=== PATIENT | female | born 1990 | race African-American/Black ===

== ENCOUNTER 2017-12-03 11:29 | Inpatient (IN) | payer MEDICAID | END 2017-12-05 15:45 | disposition home or self-care (01) | DRG 766 | LOC: D.LD 11:29 | PROC: 10D00Z1 Extraction of Products of Conception, Low, Open Approach (ICD-10-PCS; principal; 2017-12-03) | DX: O76 Abnormality in fetal heart rate and rhythm complicating labor and delivery (principal); Z3A.40 40 weeks gestation of pregnancy; Z37.0 Single live birth; O34.211 Maternal care for low transverse scar from previous cesarean delivery; O48.0 Post-term pregnancy; O99.824 Streptococcus B carrier state complicating childbirth ==

== ENCOUNTER 2020-12-27 06:40 | Day surgery (SDC) | payer MEDICAID ==
[2020-12-24 15:51] LABS: BASOPHILS 0.5 % (0-2); EOSINOPHILS 0.9 % (0-7); HEMOGLOBIN 10.7 g/dL (12-16); IMMATURE GRANULOCYTES 0.2 % (0-5); LYMPHOCYTE ABS# 2.39 10x3/uL (1.18-3.74); LYMPHOCYTES 41.2 % (15-50); MCH 23.8 pg (26.0-34.0); MCHC 32.4 g/dL (31.0-37.0); MCV 73.3 fL (80.0-100.0); MEAN PLATELET VOLUME 11.2 fL (7.4-10.4); NEUTROPHIL ABS# 2.74 10x3/uL (1.56-6.13); NEUTROPHILS 47.2 % (40-80); RDW 16.6 % (11.5-14.5); WBC 5.8 10x3/uL (4.8-10.8)
[2020-12-24 15:57] LABS: PLATELET COUNT 293 10x3/uL (130-400)
[2020-12-24 15:58] LABS: UDS - AMPHET NEGATIVE QUAL (NEGATIVE); UDS - BARB NEGATIVE QUAL (NEGATIVE); UDS - BENZO POSITIVE QUAL (NEGATIVE); UDS - COCAINE NEGATIVE QUAL (NEGATIVE); UDS - OPIATE NEGATIVE QUAL (NEGATIVE); UDS - PCP NEGATIVE QUAL (NEGATIVE); UDS - THC POSITIVE QUAL (NEGATIVE)
[~2020-12-27] VITALS: Ht 152.4 cm; Wt 56.2 kg
--- NOTE | ~2020-12-27 | OP ---
PATIENT NAME: YENIFER DAVE MEDICAL RECORD: [id number] :89 LOCATION:[facility] ADMISSION DATE: SURGEON: KEVIN MARVIN MD DATE OF OPERATION: 12/27/2020 PREOPERATIVE DIAGNOSES: 1. History of abnormal Pap (ASCUS, cannot rule out HGSIL). 2. Pelvic pain. 3. Ovarian mass. 4. Dysfunctional uterine bleeding. POSTOPERATIVE DIAGNOSES: 1. History of abnormal Pap (ASCUS, cannot rule out HGSIL). 2. Pelvic pain. 3. Ovarian mass. 4. Dysfunctional uterine bleeding. 5. Dermoid cyst. PROCEDURES PERFORMED: 1. Colposcopy. 2. Diagnostic laparoscopy with right oophorectomy and left cystectomy. 3. Hysteroscopy with D&C using ApprenNet system. 4. LEEP. SURGEON: Kevin Marvin MD GAS SPECIALIST: Blake John DO REGIONAL FORESTER: José Luis Wolfe. ANESTHESIOLOGIST: Dr. Reyez. ANESTHETIC: General. FINDINGS: At the time of colposcopy acetowhite epithelium was identified at the 1 and 4 o'clock positions. Transformation is well seen. At the time of diagnostic laparoscopy unremarkable abdominal anatomy was encountered. There was a 2-3 cm simple cyst on the left ovary. There is an 8-10 cm mass consuming the right ovary. The contents of the cyst are consistent with dermoid. At the time of hysteroscopy, no intrauterine masses were encountered and the active endometrium is noted. Vaginal vault is unremarkable. The ectocervix fails to completely order picker/assembler iodine upon LEEP. SPECIMENS REMOVED: 1. Colposcopy biopsy. 2. Right ovary with mass. 3. Left cyst and cyst wall. 4. Ectocervix with endocervix. 5. Endometrial curettings. All specimens to pathology. ESTIMATED BLOOD LOSS: Less than or equal to 75 cc. FLUIDS: 1200 cc lactated Ringer's. OPERATIVE REPORT [id number] YENIFER DAVE URINE OUTPUT: Quantity sufficient void prior to this procedure. COMPLICATIONS: None. DRAINS: None. INDICATIONS: The patient is a 30-year-old female with a known pelvic mass. The patient is consented for diagnostic laparoscopy. The patient also has been consented for possible oophorectomy or cystectomy. The patient has a history of dysfunctional uterine bleeding and will receive D&C as well as a colposcopy and LEEP for her abnormal Pap. DESCRIPTION OF PROCEDURE: After informed consent was assured, the patient was taken to the operating room where anesthetic was obtained. The patient was placed in Yellofin stirrups and then a speculum introduced. Acetic acid was placed over the cervix for several moments and then using a colposcope, acetowhite epithelium was identified at the transformation zone at the 1 and 4 o'clock positions. The complete transformation zone was seen. No masses were encountered. Colpodirected biopsies were now performed. The patient was now prepped and draped and attention was directed to the abdomen where a 5-mm trocar was inserted without difficulty. Pneumoperitoneum was developed. Accessory ports were placed in the right and left lower quadrant and a 10 mm port placed in the midline. With a grasper from the right the mass was held at the infundibulopelvic ligament and the IP was compressed, coagulated, and on the right. Dissection was continued from the right lower quadrant now with a Thunderbeat coagulation cutter until the cyst and ovaries were removed from its attachments to the adnexa. Endobag was attempted to be placed around the mass and it was not possible due to size. Mini laparotomy was performed and the cyst was removed. Contents did not spill. The fascia was closed with a running stitch of Vicryl and skin reapproximated with a subcuticular stitch. Reestablishment of the pneumoperitoneum was performed. A 2-3 cm cyst was identified on the left ovary. Holding the ovary at the hilum from the right. A Thunderbeat coagulation cutter was used to remove the cyst and cyst wall. The bed of the cyst wall was coagulated and Jack placed over this. Interceed was now wrapped around the left ovary. The pelvis has been irrigated and irrigant removed. Pneumoperitoneum was released and all port sites were removed under direct visualization. The skin was reapproximated with subcuticular stitch and Dermabond applied. The legs were positioned for the vaginal portion of this case. Using a single tooth tenaculum, the cervix was steadied and dilated to accommodate an Aveta hysteroscopy. The hysteroscopy does not reveal any intrauterine mass and a normal endometrium. A mechanical curettage was now performed. The endometrium was sampled throughout. After this had been performed, the distention media was released and the cervix prepped with Lugol solution. The iodine is felt to be taken up at portions of the transformation zone. The ecto and endocervix is removed with a LEEP wire. The bed of the LEEP is now cauterized and Monsel solution applied. Sponge, lap, and needle counts were correct times 2. The patient was awakened and went to the recovery room in stable condition. TRANSINT:[id number] Voice Confirmation ID: [id number] DOCUMENT ID: [id number] OPERATIVE REPORT [id number] YENIFER DAVE JOSEPH E MD CC: [id number] DICTATION DATE: 12/27/20 1128 HOSE COUPLING JOINER: 12/27/20 1303 REG [facility] [address] [place] [address]
[~2020-12-27 06:40] MED LIST: IBUPROFEN800 MG PO; PERCOCET 7.5/321 TAB PO; ULTRAM50 MG PO
[2020-12-27 07:22] VITALS: BP 126/74; Ht 152.4 cm; Wt 56.2 kg
[2020-12-27 07:36] LABS: HCG URINE NEGATIVE (NEGATIVE)
--- NOTE | 2020-12-27 10:56 | NUR ---
OPA IN AIRWAY ON ADMIT
--- NOTE | 2020-12-27 11:01 | NUR ---
SCOPE PATCH BEHIND LT EAR ON ADMIT
--- NOTE | 2020-12-27 14:35 | NUR ---
DISCHARGE INSTRUCTIONS REVIEWED WITH PATIENT AND SHE VOICED UNDERSTANDING OF ALL. COPY PROVIDED ALONG WITH ORIGINAL RX'S FOR PERCOCET AND MOTRIIN. PT HAS VOIDED. IV DC'D WITH CATH TIP INTACT. PT GETTING DRESSED AND AWAITING TRANSPORTATION HOME.
--- NOTE | 2020-12-27 15:15 | NUR ---
DISCHARGED VIA W/C, ACCOMPANIED BY USHA TEJADA, TO [facility] WITH FAMILY DRIVING. ALL BELONGINGS WITH PT.
== END 2020-12-27 15:15 | disposition home or self-care (01) ==
LOC: D.OPS 06:40
PROVIDERS: ATTEND Obstetrics & Gynecology
DX: Z87.42 Personal history of other diseases of the female genital tract (principal); R10.2 Pelvic and perineal pain; N83.202 Unspecified ovarian cyst, left side; N93.8 Other specified abnormal uterine and vaginal bleeding